=== PATIENT | male | born 1940 | race Caucasian/White ===

== ENCOUNTER 2018-11-09 18:34 | Emergency (ER) | payer OTHER ==
--- NOTE | 2018-11-09 18:37 | PDOC ---
Rapid Medical Evaluation Time Seen by Provider: 11/09/18 18:36 Medical Evaluation: 11/09/18 18:36 HPI: Possible parotid abscess EXAM: No distress ORDERS: US already ordered and scheduled Discharge Disposition - Diagnosis Ear pain - Referrals - Patient Instructions - Post Discharge Activity
[2018-11-09 18:40] VITALS: BP 158/85; PULSE 74; TEMP 97.5; BMI 22.8
--- NOTE | 2018-11-09 19:10 | CONSULT ---
Consult Consult Specialty:: Surgery Reason for Consultation:: Patient is known to me,, c/o Swelling in right cheek for 2 weeks, with some pain. No fever. - History of Present Illness Chief Complaint: Swelling in right cheek for 2 weeks. - History Source History Provided By: Patient Limitations to Obtaining History: No Limitations - Past Medical History ENT: Yes: Other (Swelling in right cheek for 2 weeks.) - Past Surgical History Past Surgical History: Yes: None - Alcohol/Substance Use Hx Alcohol Use: No - Smoking History Smoking history: Never smoked - Social History Usual Living Arrangement: With Spouse Home Medications - Allergies Allergies/Adverse Reactions: Allergies Allergy/AdvReac Type Severity Reaction Status Date / Time No Known Allergies Allergy Verified 11/09/18 18:36 Physical Exam Vital Signs: Vital Signs Temperature 97.5 F L 11/09/18 18:37 Pulse Rate 74 11/09/18 18:37 Respiratory Rate 17 11/09/18 18:37 Blood Pressure 158/85 11/09/18 18:37 O2 Sat by Pulse Oximetry (%) 100 11/09/18 18:37 Neck: Yes: Other (Swelling in the region of the right parotid, slightly fluctuant. Not palpable intraorally. No facial nerve weakness. No trismus. No lymphadenopathy.) Imaging - Results Ultrasound: Report Reviewed (Ultrasound : cystic lesion in the region of the right parotid gland, about 2.5 cm.) Problem List - Problems (1) Mass of right parotid gland Code(s): K11.9 - DISEASE OF SALIVARY GLAND, UNSPECIFIED (2) Abscess of external cheek, right Code(s): L02.01 - CUTANEOUS ABSCESS OF FACE Assessment/Plan Mass right parotid , ? abscess. Plan : Aspiration under local anesthesia.
[2018-11-09] MEDS ORDERED: LIDOCAINE HCL 2% (50ML VIAL) SQ ONE (19:18)
--- NOTE | 2018-11-09 19:19 | PDOC ---
History of Present Illness - General Chief Complaint: Abscess Boil Stated Complaint: SWELLING Time Seen by Provider: 11/09/18 18:36 History Source: Patient Exam Limitations: No Limitations - History of Present Illness Initial Comments: 11/09/18 20:02 HISTORY OF PRESENT ILLNESS: This is a 77-year-old male presents emergency department for evaluation of right-sided parotid swelling starting 2 days ago. Patient reports the swelling has been painless and is not anteroinferior with any activities of daily living. Patient has not taken anything for the swelling as of yet. Patient presented to the general surgeon's office today for evaluation who is physically in the emergency Department with the patient to handle drainage of the swelling. Patient denies any fevers or chills. No recent travel or sick contacts. PAST MEDICAL HISTORY: Denies past medical history SURGICAL HISTORY: Denies ALLERGIES: No known drug allergies REVIEW OF SYSTEMS General/Constitutional: Denies fever or chills. Denies weakness, weight change. HEENT: see HPI Cardiovascular: Denies chest pain or shortness of breath. Respiratory: Denies cough, wheezing, or hemoptysis. Gastrointestinal: Denies nausea, vomiting, diarrhea or constipation. Denies rectal bleeding. Genitourinary: Denies dysuria, frequency, or change in urination. Musculoskeletal: Denies joint or muscle swelling or pain. Denies neck or back pain. Skin and breasts: Denies rash or easy bruising. Neurologic: Denies headache, vertigo, loss of consciousness, or loss of sensation. Psychiatric: Denies depression or anxiety. Endocrine: Denies increased thirst. Denies abnormal weight change. Hematologic/Lymphatic: Denies anemia, easy bleeding, or history of blood clots. Allergic/Immunologic: Denies hives or skin allergy. Denies latex allergy. PHYSICAL EXAM General Appearance: Well-appearing, appropriately dressed. No apparent distress , no intoxication. HEENT: EOMI, PERRLA, normal ENT inspection, normal voice, TMs normal, pharynx normal. No conjunctival pallor. No photophobia, scleral icterus. 3 cm circular fluctuant mass present to the right parotid. No drainage present. Unable to express fluid. Neck: Supple. Trachea midline. No tenderness, rigidity, carotid bruit, stridor , lymphadenopathy, or thyromegaly. Respiratory/Chest: Lungs CTAB. No shortness of breath, chest tenderness, respiratory distress, accessory muscle use. No crackles, rales, rhonchi, stridor , wheezing, dullness Cardiovascular: RRR. S1, S2. No JVD, murmur, bradycardia, tachycardia. Past History - Past Medical History Allergies/Adverse Reactions: Allergies Allergy/AdvReac Type Severity Reaction Status Date / Time No Known Allergies Allergy Verified 11/09/18 18:36 Home Medications: Ambulatory Orders Amoxicillin/Potassium Clav [Augmentin 500-125 Tablet] 1 each PO TID #20 tablet 11/09/18 CVA: No COPD: No CHF: No DVT: No - Immunization History Immunization Up to Date: Yes - Suicide/Smoking/Psychosocial Hx Smoking History: Never smoked Hx Alcohol Use: No Drug/Substance Use Hx: No *Physical Exam - Vital Signs Last Vital Signs Temp Pulse Resp BP Pulse Ox 97.5 F L 74 17 158/85 100 11/09/18 18:37 11/09/18 18:37 11/09/18 18:37 11/09/18 18:37 11/09/18 18:37 Medical Decision Making - Medical Decision Making 11/09/18 20:04 A/P: 77-year-old male with right parotid swelling for 4 days Gen. surgery consult-Dr. Ortega Care deferred to general surgery Discharge home *DC/Admit/Observation/Transfer Diagnosis at time of Disposition: Parotid cyst - Discharge Dispostion Disposition: HOME Condition at time of disposition: Stable Decision to Admit order: No - Referrals - Patient Instructions Additional Instructions: Follow-up in Dr. Ortega's office as instructed. Take antibiotics as prescribed. Take Tylenol or Motrin as needed for pain. Return to emergency room for any concerns. - Post Discharge Activity
--- NOTE | 2018-11-09 19:24 | PDOC ---
*Physical Exam - Vital Signs Last Vital Signs Temp Pulse Resp BP Pulse Ox 97.5 F L 74 17 158/85 100 11/09/18 18:37 11/09/18 18:37 11/09/18 18:37 11/09/18 18:37 11/09/18 18:37 Medical Decision Making - Medical Decision Making 11/09/18 19:23 Patient seen by the advanced practice provider under my direct supervision. Ancillary testing reviewed as necessary. I agree with plan as outlined by the advanced practice provider. *DC/Admit/Observation/Transfer Diagnosis at time of Disposition: Parotid cyst - Referrals - Patient Instructions - Post Discharge Activity
--- NOTE | 2018-11-09 19:54 | PROC ---
Procedure Note Procedure: Aspiration of abscess of right parotid gland. Patient was informed . Area on right cheek was cleansed with betadine. 2 cc of 1% lidocaine was infiltrated over the swelling , on right cheek. A no.18 gauge needle was introduced into the swelling and 5 ml. of purulent fluid was aspirated and sent for culture. Band aid applied. Diagnosis : Right parotid abscess. Plan : Antibiotics , Augmentin I will follow.
[2018-11-09] MEDS ORDERED: AMOX TR/POT CLAV 500MG/125MG TABLETS (FP) PO ONE (20:04)
[2018-11-09] MEDS ORDERED: AMOX TR/POT CLAV 500MG/125MG TABLETS (FP) ONE (20:10)
== END 2018-11-09 20:37 | disposition home or self-care (01) ==
LOC: JER 18:34
PROC: 0J910ZZ Drainage of Face Subcutaneous Tissue and Fascia, Open Approach (ICD-10-PCS; principal; 2018-11-09)
DX: K11.3 Abscess of salivary gland (principal); K11.6 Mucocele of salivary gland
CPT/HCPCS: 10160; 76536-TC; 87070; 87075; 87205; 99281-25